=== PATIENT | male | born 1980 | race Caucasian/White ===

== ENCOUNTER → 2021-01-17 | Outpatient (REF) ==
--- NOTE | 2021-01-17 13:16 | REPPI ---
INDICATION: BACK, NECK PAIN. COMPARISON: None TECHNIQUE: AP and lateral views FINDINGS: The disc spaces are symmetric and well maintained. Vertebral body height and alignment is within normal limits. The pedicles are intact bilaterally. IMPRESSION: Unremarkable limited exam. <Electronically signed by Gigi Storm > 01/17/21 [id number]
--- NOTE | 2021-01-17 13:17 | REPPI ---
INDICATION: BACK, NECK PAIN. COMPARISON: None TECHNIQUE: AP, lateral, open-mouth, and swimmer's view FINDINGS: Vertebral body height and alignment is within normal limits. The disc spaces are symmetric and well maintained. The facet joints appear to be well aligned bilaterally. The patient's head is tilted somewhat to the left. Secondary to the superimposition of dentition and or osseous structures evaluation of the dense cannot be made. IMPRESSION: Essentially unremarkable limited exam as described above. The patient's head is tilted to the left which could be secondary to position or muscular spasm correlate clinically. <Electronically signed by Gigi Storm > 01/17/21 0031
== END ==
LOC: M PLAIMG 12:21
PROVIDERS: ATTEND Internal Medicine
DX: M54.2 Cervicalgia (principal); M54.5 Low back pain

== ENCOUNTER → 2023-09-29 | Outpatient (CLI) | payer MEDICARE, OTHER | LOC: M SLEEP 20:00 | PROVIDERS: ATTEND Physician Assistant | DX: G47.33 Obstructive sleep apnea (adult) (pediatric) (principal) ==